=== PATIENT | female | born 1945 | race Caucasian/White ===

== ENCOUNTER 2017-06-10 22:47 | Emergency (ER) ==
[2017-06-10] MEDS ORDERED: DECADRON 4 MG/ML SDV IM STA (22:49)
[2017-06-10] MEDS ORDERED: LIDOCAINE HCL 1% SDV IM STA (22:49)
[2017-06-10] MEDS ORDERED: ROCEPHIN IM STA (22:49)
--- NOTE | 2017-06-10 22:52 | ED.PDOC ---
General ED Provider: Dr. YOKO VERAS-ER Chief Complaint: Non-specific Complaint Stated Complaint: JAMIE GOT SINUS AND ALLERGIES Time Seen by Physician: 22:50 Mode of Arrival: Walk-In Information Source: Patient, Family Exam Limitations: No limitations Primary Care Provider: YOKO VERAS Nursing and Triage Documentation Reviewed and Agree: Yes Reviewed sepsis parameters & appropriate labs ordered?: Yes System Inflammatory Response Syndrome: Not Applicable Sepsis Protocol: For patient's 13 years and over: Temp is 96.8 and below OR 101 and greater Pulse >90 BPM Resp >20/minute Acutely Altered Mental Status Are patient's symptoms suggestive of a new infection, such as: -Pneumonia -Skin, Soft Tissue -Endocarditis -UTI -Bone, Joint Infection -Implantable Device -Acute Abdominal Infection -Wound Infection -Meningitis -Blood Stream Catheter Infection -Unknown EENT Complaint Exam - Nasal Complaint/Exam Onset/Duration: 3 DAYS Symptoms Are: Still present Timing: Constant Initial Severity: Mild Current Severity: Mild Aggravating: Reports: URI Associated Signs and Symptoms: Reports: Nasal congestion, Sinus pain, Nasal discharge. Denies: Bruising, Hematuria, Hematochezia Foreign Body Present: No Septal Hematoma: No Differential Diagnoses: Allergic Rhinitis, Sinusitis Review of Systems - Review Of Systems Constitutional: Reports: No symptoms Eyes: Reports: No symptoms Ears, Nose, Mouth, Throat: Reports: Nose discharge Respiratory: Reports: Cough Cardiac: Reports: No symptoms GI: Reports: No symptoms : Reports: No symptoms Musculoskeletal: Reports: No symptoms Skin: Reports: No symptoms Neurological: Reports: No symptoms Endocrine: Reports: No symptoms Hematologic/Lymphatic: Reports: No symptoms All Other Systems: Reviewed and Negative Past Medical History - Past Medical History Previously Healthy: Yes Endocrine: Reports: None Cardiovascular: Reports: None Respiratory: Reports: None Hematological: Reports: None Gastrointestinal: Reports: None Genitourinary: Reports: None Neuro/Psych: Reports: None Musculoskeletal: Reports: None Cancer: Reports: None - Surgical History General Surgical History: Reports: Unknown - Family History Family History: Reports: Unknown - Social History Smoking Status: Former smoker Hx Substance Use: No Alcohol Screening: Occasionally Physical Exam - Physical Exam Appearance: Well-appearing Eyes: MAT, EOMI, Conjunctiva clear ENT: Rhinorrhea Neck: Supple Respiratory: Airway patent Cardiovascular: RRR, Pulses normal, No rub, No murmur GI/: Soft, Nontender, No masses, Bowel sounds normal, No Organomegaly Musculoskeletal: Normal strength, ROM intact, No edema, No calf tenderness Skin: Warm, Dry, Normal color Neurological: Sensation intact, Motor intact, Reflexes intact, Cranial nerves intact, Alert, Oriented Psychiatric: Affect appropriate, Mood appropriate Critical Care Note - Critical Care Note Total Time (mins): 0 Course - Course Orders, Labs, Meds: Orders Category Date Time Status Ceftriaxone Sodium [Rocephin] MEDS 06/10/17 22:49 Discontinued 1 gm IM ONCE STA Dexamethasone 4 mg/ml Inj [Decadron 4 mg/ml Sdv] MEDS 06/10/17 22:49 Discontinued 8 mg IM ONCE STA Lidocaine HCl/Pf [Lidocaine HCl 1% Sdv] MEDS 06/10/17 22:49 Discontinued 2.1 ml IM ONCE STA Medications Discontinued Medications Generic Name Dose Route Start Last Admin Trade Name Freq PRN Reason Stop Dose Admin Ceftriaxone Sodium 1 gm 06/10/17 22:49 Rocephin IM 06/10/17 22:50 ONCE STA Dexamethasone Sodium Phosphate 8 mg 06/10/17 22:49 Decadron 4 Mg/Ml Sdv IM 06/10/17 22:50 ONCE STA Lidocaine HCl 2.1 ml 06/10/17 22:49 Lidocaine Hcl 1% Sdv IM 06/10/17 22:50 ONCE STA Departure - Departure Time of Disposition: 22:52 Disposition: HOME SELF-CARE Discharge Problem: Allergic rhinitis Qualifiers: Allergic rhinitis trigger: unspecified Allergic rhinitis seasonality: seasonal Qualified Code(s): J30.2 - Other seasonal allergic rhinitis Sinusitis Qualifiers: Sinusitis location: unspecified location Chronicity: acute Recurrence: not specified as recurrent Qualified Code(s): J01.90 - Acute sinusitis, unspecified Instructions: Allergies (ED) Condition: Good Pt referred to PMD for follow-up: Yes IPMP verified?: No Additional Instructions: MEDROL DOSE PACK--ASTELIN NASAL SPRAY 2 PUFFS EACH NOSTRIL BID ---AUGMENTIN 500MG BID X 10 DAYS Allergies/Adverse Reactions: Allergies No Known Allergies Allergy (Unverified 07/07/15 23:01) Home Medications: Ambulatory Orders Fluticasone Propionate [Flonase] 1 spray NS DAILY PRN 10/24/15 Disposition Discussed With: Patient
[2017-06-10 22:59] VITALS: TEMP 99.1; BMI 22.4
[2017-06-10 23:36] VITALS: BP 168/88
== END 2017-06-10 23:30 | disposition home or self-care (01) ==
LOC: ED 22:47
DX: J30.2 Other seasonal allergic rhinitis (principal); J01.90 Acute sinusitis, unspecified
CPT/HCPCS: 96372; 99282